=== PATIENT | male | born 1965 | race African-American/Black ===

== ENCOUNTER → 2017-03-29 | Outpatient (CLI) | payer OTHER ==
[~2017-03-29] VITALS: Ht 167.6 cm; Wt 140.7 kg
[~2017-03-29] MED LIST: AMLO2.5T PO; CARB6.5S5 EACH EAR; CHLORHEXIDINE GLUCONATE 2 % 1 PACK (2 CLOTHS) TOPICAL PRN; IBUP800T23 PO; INSULIN HUMAN REGULAR 1,000 UNITS/10 ML VIAL SQ PRN; LACTATED RINGER'S 1000 ML IV PRN; LOSA50TA PO; METOPROLOL TARTRATE 25 MG TAB PO PRN; ONCETAB7 PO; POVIDONE IODINE 5% (ANTISEPSIS KIT) 4 APPLICATIONS EACH NARE PRN; PROPOFOL 200 MG/20 ML AMP IV ONE; SODIUM CHLORID 0.9% 500 ML IV PRN
[2017-03-29 11:07] VITALS: BP 153/70; PULSE 88; RESP 18; TEMP 98.5; O2SAT 96
--- NOTE | 2017-03-29 12:25 | EKG ---
Date Performed: 03/29/2017 Time Performed: 10:55:28 PTAGE: 51 years EKG: Sinus rhythm NORMAL ECG NO PREVIOUS TRACING DOCTOR: Farzad Llanes Interpretating Date/Time 03/29/2017 12:24:27
[2017-03-29 14:20] VITALS: BP 116/70; PULSE 76; RESP 18; TEMP 99.3; O2SAT 97
--- NOTE | 2017-03-29 14:20 | PD.PROCEDR ---
GI Procedure PROCEDURE PERFORMED EGD with biopsy followed by colonoscopy with snare polypectomy INDICATION FOR PROCEDURE GI bleed PROCEDURE: The procedure, risks and benefits were discussed with Mr. Swain and informed consent was obtained. Anesthesia sedated him with Diprivan. He was placed in the left lateral decubitus position. EGD: The Pentax videoscope was introduced through the oropharynx and advanced to the second portion of the duodenum under direct visualization. Retroflexion was performed in the stomach. FINDINGS: Esophagus this was unremarkable except for the Z line which was somewhat irregular this was biopsied Stomach there was a small hiatal hernia otherwise gastric mucosa was unremarkable Duodenum this was unremarkable Colonoscopy: The Pentax videoscope was introduced through the rectum and advanced to cecum where the ileocecal valve and appendiceal orifice were identified. Retroflexion was performed in the rectum. Colonic prep was fair FINDINGS: Colonic withdrawal time greater than 6 minutes as the scope was slowly withdrawn colonic mucosa was carefully inspected the patient was noted to have a sessile polyp in the sigmoid region this was completely excised using cold snare technique and retrieved for further evaluation the patient was noted to have mild to moderate diverticulosis scattered throughout the colon colonic examination otherwise unremarkable retroflexion did reveal moderate size internal hemorrhoids ERCP: Patient was placed in a prone position. The Pentax videoscope was introduced through the oropharynx and advanced to the second portion of the duodenum where the ampula was identified. [] ESTIMATED BLOOD LOSS: None SPECIMENS REMOVED: Esophageal and colonic COMPLICATIONS: None IMPRESSION: Irregular Z line Hiatal hernia Colon polyp Diverticulosis Internal hemorrhoids PLAN: Await biopsy High-fiber diet Avoid straining when defecating Follow-up in clinic in 3-4 weeks Colonoscopy in 2 years Zeb Rutherford MD Mar 29, 2017 14:20
== END ==
LOC: HEND 10:20
PROVIDERS: ATTEND Internal Medicine Gastroenterology
DX: K92.2 Gastrointestinal hemorrhage, unspecified (principal); K22.9 Disease of esophagus, unspecified; K44.9 Diaphragmatic hernia without obstruction or gangrene; D12.5 Benign neoplasm of sigmoid colon; K64.8 Other hemorrhoids; Z01.810 Encounter for preprocedural cardiovascular examination
CPT/HCPCS: 88305; 93005